=== PATIENT | female | born 1990 | race Caucasian/White ===

== ENCOUNTER 2016-11-25 10:25 | Emergency (ER) | payer MEDICAID ==
[~2016-11-25] VITALS: Ht 160 cm; Wt 50.0 kg
[~2016-11-25 10:25] MED LIST: AMOX500C PO; CIPR-9 PO; IBUP-232 PO; METR500T10 PO; MOTR200T4 PO; ZOFR4TAB3 SL
[2016-11-25 10:26] VITALS: BP 119/83; PULSE 96; RESP 19; TEMP 97.6; O2SAT 100
[2016-11-25] MEDS ORDERED: ONDANSETRON HCL 4 MG/2 ML VIAL IVP ONE (11:15)
[2016-11-25] MEDS ORDERED: KETOROLAC TROMETHAMINE 30 MG/ML (IVP) VIAL IVP ONE (11:15)
[2016-11-25] MEDS ORDERED: SODIUM CHLORIDE 0.9% FLUSH 5 ML FLUSH IVF PRN (11:15)
[2016-11-25] MEDS ORDERED: MORPHINE SULFATE 4 MG/ML INJ IV PUSH ONE (11:15)
--- NOTE | 2016-11-25 11:17 | PD ---
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 , previous miscarriage and live births. Does not believe she could be . States her last missed her period was October 22 and she began to have her menstrual period 2 days ago. Since, she has had severe sharp pain in the pelvis that radiates into the back. States that she has never had any history of dysmenorrhea, menorrhagia or symptoms similar to this. She has been taking some Tylenol and ibuprofen with little to no relief. Patient notes heavy vaginal bleeding, using a tampon every 1-1.5 hours. No clot. She does not believe she could be but is sexually active and is not currently on any form of control. Pain is moderate, sharp, waxing and waning. PFSH Past Medical History Medical History: Denies Significant Hx Genitourinary: Yes (FREQUENT UTI'S) Immunizations Current: Yes Influenza Vaccination: Yes ?: Unknown LMP: 11/24/16 - CURRENT (LMP OCT 22 2016) : 2 Para: 1 Miscarriage: 1 : 0 Ovarian Cysts: Yes (RT. SIDED) Past Surgical History Gynecologic Surgery: Yes (BARTHALAN GLAND CYST DRAINED 06/15/07 ) Social History Alcohol Use: Yes Tobacco Use: Yes (/ PPD) Substance Use: No Allergies-Medications (Allergen,Severity, Reaction): Coded Allergies: Doxycycline (Verified Allergy, Severe, VOMIT, 07/20/16) Tylenol #3 (Verified Adverse Reaction, Intermediate, "MAKES ME NOT KNOW WHO I AM", 07/20/16) Ultram (Verified Adverse Reaction, Intermediate, VOMITTING, 07/20/16) Reported Meds & Prescriptions Reported Meds & Active Scripts Active Reported Motrin Ib (Ibuprofen) 200 Mg Tab 400 Mg PO Q4H PRN Review of Systems Except as stated in HPI: all other systems reviewed are Neg Physical Exam Narrative GENERAL: Thin female in moderate distress laying in position holding abdomen SKIN: Warm and dry. HEAD: Normocephalic. EYES: No scleral icterus. No injection or drainage. ENT: Mucous membranes pink and moist. NECK: Supple CARDIOVASCULAR: Regular rate and rhythm. No murmur appreciated. RESPIRATORY: No accessory muscle use. Clear to auscultation. Breath sounds equal bilaterally. GASTROINTESTINAL: Abdomen soft, low abdominal/pelvic tenderness to palpation without rebound or guarding GENITOURINARY: External external female genitalia. Speculum examination reveals small blood within the vaginal vault, no clot. No cervical erythema. Bimanual examination with moderate tenderness palpation of the cervix and uterus and less so bilateral adnexa. MUSCULOSKELETAL: Normal gait NEUROLOGICAL: Awake and alert. Normal speech. PSYCHIATRIC: Appropriate mood and affect; insight and judgment normal. Data Data Last Documented VS Vital Signs Date Time Temp Pulse Resp B/P Pulse Ox O2 Delivery O2 Flow Rate FiO2 11/25/16 12:52 98.7 78 16 109/64 97 Orders Ed Urine Pregnancytest Poc (11/25/16 10:46) Urinalysis - C+S If Indicated (11/25/16 10:46) Basic Metabolic Panel (Bmp) (11/25/16 11:12) Complete Blood Count With Diff (11/25/16 11:12) Iv Access Insert/Monitor (11/25/16 11:12) Oximetry (11/25/16 11:12) Morphine Inj (Morphine Inj) (11/25/16 11:15) Ondansetron Inj (Zofran Inj) (11/25/16 11:15) Sodium Chloride 0.9% Flush (Ns Flush) (11/25/16 11:15) Ketorolac Inj (Toradol Inj) (11/25/16 11:15) Urine Culture (11/25/16 11:00) Us Pelvis Comp W Dop Transvag (11/25/16 ) Labs Laboratory Tests Test 11/25/16 11/25/16 11:00 11:30 Urine Color YELLOW Urine Turbidity CLEAR Urine pH 6.5 Urine Specific [place] 1.019 Urine Protein TRACE mg/dL Urine Glucose (UA) NEG mg/dL Urine Ketones NEG mg/dL Urine Occult Blood SMALL Urine Nitrite NEG Urine Bilirubin NEG Urine Urobilinogen LESS THAN 2.0 MG/DL Urine Leukocyte Esterase SMALL Urine RBC 2 /hpf Urine WBC 21 /hpf Urine WBC Clumps RARE Urine Squamous Epithelial 2 /hpf Cells Urine Bacteria OCC /hpf Microscopic Urinalysis Comment CULTURE INDICATED White Blood Count 7.9 TH/MM3 Red Blood Count 4.13 MIL/MM3 Hemoglobin 13.8 GM/DL Hematocrit 39.0 % Mean Corpuscular Volume 94.6 FL Mean Corpuscular Hemoglobin 33.3 PG Mean Corpuscular Hemoglobin 35.3 % Concent Red Cell Distribution Width 12.6 % Platelet Count 263 TH/MM3 Mean Platelet Volume 8.2 FL Neutrophils (%) (Auto) 67.8 % Lymphocytes (%) (Auto) 22.9 % Monocytes (%) (Auto) 6.7 % Eosinophils (%) (Auto) 2.3 % Basophils (%) (Auto) 0.3 % Neutrophils # (Auto) 5.3 TH/MM3 Lymphocytes # (Auto) 1.8 TH/MM3 Monocytes # (Auto) 0.5 TH/MM3 Eosinophils # (Auto) 0.2 TH/MM3 Basophils # (Auto) 0.0 TH/MM3 CBC Comment DIFF FINAL Differential Comment Sodium Level 141 MEQ/L Potassium Level 4.0 MEQ/L Chloride Level 104 MEQ/L Carbon Dioxide Level 29.9 MEQ/L Anion Gap 7 MEQ/L Blood Urea Nitrogen 10 MG/DL Creatinine 1.00 MG/DL Estimat Glomerular Filtration 66 ML/MIN Rate Random Glucose 82 MG/DL Calcium Level 8.3 MG/DL MDM Medical Decision Making Medical Screen Exam Complete: Yes Emergency Medical Condition: Yes Medical Record Reviewed: Yes Differential Diagnosis 26-year-old here with complaint of pelvic cramping radiating in the back with heavy vaginal bleeding for the last 2 days. Differential was , ectopic , dysmenorrhea, menorrhagia, ovarian cyst, ovarian torsion, UTI and less likely GI symptomatology. Narrative Course Placed on monitor, IV established and blood obtained. Given morphine, Toradol, Zofran. Urine test was negative. CBC, BMP, urinalysis showed small leukocyte esterase with white cell, white cell clumps and bacteria. Patient will be treated with Macrobid for home. Ultrasound of the pelvis shows trace free fluid within the cul-de-sac but otherwise negative. Patient reassured and discharged. Diagnosis Primary Impression: Dysmenorrhea Additional Impression: UTI (urinary tract infection) Qualified Code: N30.00 - Acute cystitis without hematuria Referrals: [facility] as needed Additional Instructions: Macrobid as prescribed for her urinary tract infection. Tylenol, ibuprofen, Aleve, Midol as needed for pain. [place] as needed for breakthrough pain. 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 Med/Other Pt SpecificInfo: Prescription(s) given Scripts Hydrocodone-Acetaminophen ([place])5-325 mg Tab1-2 Tab PO Q6H PRN (PAIN) #12 TAB Ref 0 Prov:Ana Luisa Currie MD 11/25/16 Disposition: 01 DISCHARGE HOME Condition: Stable Ana Luisa Currie MD Nov 25, 2016 11:17
[2016-11-25 11:40] LABS: BACTERIA, URINE OCC /hpf; BLOOD, URINE SMALL (NEG); GLUCOSE,URINE NEG (NEG); KETONE, URINE NEG (NEG); NITRITE,URINE NEG (NEG); PH, URINE 6.5 (5.0-8.5); SQUAMOUS EPITHELIAL CELL URINE 2 /hpf (0-5); URINE COLOR YELLOW (YELLW/STRAW)
[2016-11-25 11:43] LABS: COMMENT (UR) CULTURE INDICATED; CULTURE IF INDICATED CULTURE INDICATED
[2016-11-25 11:45] LABS: AUTOMATED NEUTROPHIL # 5.3 TH/MM3 (1.8-7.7); BASOPHIL % 0.3 % (0.0-2.0); EOSINOPHIL # 0.2 TH/MM3 (0-0.4); EOSINOPHIL % 2.3 % (0.0-4.0); HEMO FLAGS DIFF FINAL; LYMPH % 22.9 % (9.0-44.0); LYMPHOCYTE # 1.8 TH/MM3 (1.0-4.8); MEAN CELL VOLUME 94.6 FL (80.0-100.0); MEAN CORPUSCULAR HEMOGLOBIN 33.3 PG (27.0-34.0); MEAN CORPUSCULAR HGB CONC 35.3 % (32.0-36.0); MONO % 6.7 % (0.0-8.0); NEUT % 67.8 % (16.0-70.0); PLATELET COUNT 263 TH/MM3 (150-450); RED BLOOD COUNT 4.13 MIL/MM3 (4.00-5.30); RED CELL DISTRIBUTION WIDTH 12.6 % (11.6-17.2); WHITE BLOOD COUNT 7.9 TH/MM3 (4.0-11.0)
[2016-11-25 12:12] LABS: BICARBONATE 29.9 MEQ/L (21.0-32.0)
[2016-11-25 12:52] VITALS: BP 109/64; TEMP 98.7
--- NOTE | 2016-11-25 12:52 | RADRPT ---
EXAM DATE/TIME: 11/25/2016 12:11 [facility] COMPARISON: No previous studies available for comparison. INDICATIONS : Pelvic pain. MEDICAL HISTORY : Ovarian cyst. SURGICAL HISTORY : Barthalan gland cyst drainage. ENCOUNTER: Initial ACUITY: 3 days PAIN SCORE: 6/10 LOCATION: Bilateral pelvis MEASUREMENTS: UTERUS: 8.3 x 4.2 x 3.6 cm ENDOMETRIAL STRIPE: 3 mm RIGHT OVARY: 3.6 x 2.0 x 2.0 cm LEFT OVARY: 3.2 x 2.6 x 2.4 cm FINDINGS: UTERUS: The myometrium has homogeneous echotexture without mass. RIGHT OVARY: Ovary contains no mass or significant cystic lesion. Normal flow. LEFT OVARY: Ovary contains no mass or significant cystic lesion. Normal flow. MISCELLANEOUS: Trace free fluid. CONCLUSION: 1. Trace free fluid in the cul-de-sac. 2. Otherwise unremarkable pelvic sonogram. Neville Mathur MD on November 25, 2016 at 12:49 Board Certified Radiologist. This report was verified electronically.
[2016-11-25] MEDS ORDERED: NORC5TAB PO (13:02)
[2016-11-25] MEDS ORDERED: MACR100C2 PO (13:03)
== END 2016-11-25 13:39 | disposition home or self-care (01) ==
LOC: NEPE 10:25
DX: N94.6 Dysmenorrhea, unspecified (principal); N39.0 Urinary tract infection, site not specified; B96.20 Unspecified Escherichia coli [E. coli] as the cause of diseases classified elsewhere; F17.210 Nicotine dependence, cigarettes, uncomplicated
CPT/HCPCS: 76830; 76856; 80048; 81001; 84703; 85025; 87077; 87086; 87186; 93975; 96374; 96375; 99284; J1885; J2270; J2405

== ENCOUNTER 2016-11-30 17:48 | Emergency (ER) | payer MEDICAID ==
[~2016-11-30] VITALS: Ht 160 cm; Wt 50.0 kg
[~2016-11-30 17:48] MED LIST changes: -AMOX500C PO; -CIPR-9 PO; -IBUP-232 PO; +MACR100C2 PO; -METR500T10 PO; +NORC5TAB PO; -ZOFR4TAB3 SL
[2016-11-30 17:51] VITALS: BP 131/78; PULSE 98; RESP 17; TEMP 97.7; O2SAT 100
[2016-11-30] MEDS ORDERED: SODIUM CHLOR 0.9% 1000 ML INJ 1,000 ML IV SCH (18:25)
[2016-11-30 18:28] LABS: BACTERIA, URINE RARE /hpf; BLOOD, URINE SMALL (NEG); COMMENT (UR) CULTURE INDICATED; CULTURE IF INDICATED CULTURE INDICATED; GLUCOSE,URINE NEG (NEG); KETONE, URINE NEG (NEG); MUCUS URINE FEW /lpf (OCC); NITRITE,URINE NEG (NEG); PH, URINE 8.5 (5.0-8.5); SQUAMOUS EPITHELIAL CELL URINE 26 /hpf (0-5); URINE COLOR YELLOW (YELLW/STRAW)
[2016-11-30] MEDS ORDERED: SODIUM CHLOR 0.9% 1000 ML INJ 1,000 ML IV ONE (18:30)
[2016-11-30] MEDS ORDERED: ONDANSETRON HCL 4 MG/2 ML VIAL IVP ONE (18:30)
[2016-11-30] MEDS ORDERED: KETOROLAC TROMETHAMINE 30 MG/ML (IVP) VIAL IVP ONE (18:30)
[2016-11-30] MEDS ORDERED: SODIUM CHLORIDE 0.9% FLUSH 5 ML FLUSH IVF PRN (18:30)
[2016-11-30] MEDS ORDERED: MORPHINE SULFATE 4 MG/ML INJ IV PUSH ONE (18:30)
[2016-11-30 18:36] VITALS: O2SAT 99
[2016-11-30 18:38] VITALS: BP 116/68; PULSE 84; RESP 18; O2SAT 100
[2016-11-30] MEDS ORDERED: cefTRIAXone INJ 1,000 MG in SODIUM CHLORIDE 0.9% INJ 100 ML IV ONE (18:45)
[2016-11-30 19:01] LABS: AUTOMATED NEUTROPHIL # 6.7 TH/MM3 (1.8-7.7); BASOPHIL % 0.2 % (0.0-2.0); EOSINOPHIL # 0.1 TH/MM3 (0-0.4); HEMO FLAGS DIFF FINAL; LYMPH % 23.2 % (9.0-44.0); LYMPHOCYTE # 2.2 TH/MM3 (1.0-4.8); MEAN CELL VOLUME 96.2 FL (80.0-100.0); MEAN CORPUSCULAR HEMOGLOBIN 32.2 PG (27.0-34.0); MEAN CORPUSCULAR HGB CONC 33.5 % (32.0-36.0); MONO % 4.7 % (0.0-8.0); NEUT % 70.9 % (16.0-70.0); PLATELET COUNT 255 TH/MM3 (150-450); RED BLOOD COUNT 4.16 MIL/MM3 (4.00-5.30); RED CELL DISTRIBUTION WIDTH 12.9 % (11.6-17.2); WHITE BLOOD COUNT 9.4 TH/MM3 (4.0-11.0)
--- NOTE | 2016-11-30 19:05 | PD ---
HPI Chief Complaint: Flank/Kidney Pain Time Seen by Provider: 18:09 Travel History International Travel<30 days: No Contact w/Intl Traveler<30days: No Traveled to known affect area: No History of Present Illness HPI The patient is a 26-year-old female who presents emergency department for right flank pain of 2 days' duration. The patient states she was seen in emergency department 5 days ago and diagnosed with dysmenorrhea and possibly UTI. The patient was placed on Macrobid twice a day for 5 days, completed treatment. However, the last 2 days she's had progressive symptoms of right mid back pain that radiates to the right flank and right lower quadrant. She does note nausea and vomiting earlier today with decreased oral intake. The patient denies . Last menstrual cycle ended 2 days ago. The patient denies any dysuria, frequency, urgency, or vaginal discharge. However, she does have a history of multiple asymptomatic UTIs in the past and pyelonephritis in the past. She does complain of subjective fevers, chills, and sweats. The patient does not currently have a primary physician. She denies any history of previous nephrolithiasis or appendicitis. Tendons are moderate, there are no alleviating factors, possibly exacerbated by kidney infection per the patient's report. PFSH Past Medical History Diminished Hearing: No Genitourinary: Yes (FREQUENT UTI'S) Immunizations Current: Yes Tetanus Vaccination: < 5 Years ?: Not : 2 Para: 1 Miscarriage: 1 : 0 Ovarian Cysts: Yes (RT. SIDED) Past Surgical History Gynecologic Surgery: Yes (BARTHALAN GLAND CYST DRAINED 06/15/07 ) Social History Alcohol Use: Yes Tobacco Use: Yes (09/15 PPD) Substance Use: No Allergies-Medications (Allergen,Severity, Reaction): Coded Allergies: Doxycycline (Verified Allergy, Severe, VOMIT, 11/30/16) Tylenol #3 (Verified Adverse Reaction, Intermediate, "MAKES ME NOT KNOW WHO I AM", 11/30/16) Ultram (Verified Adverse Reaction, Intermediate, VOMITTING, 11/30/16) Reported Meds & Prescriptions Reported Meds & Active Scripts Active Macrobid (Nitrofurantoin Monoh/Nitrofur Macro) 100 Mg Cap 100 Mg PO BID 7 Days [place] (Hydrocodone-Acetaminophen) 5-325 mg Tab 1-2 Tab PO Q6H PRN Reported Motrin Ib (Ibuprofen) 200 Mg Tab 400 Mg PO Q4H PRN Review of Systems Except as stated in HPI: all other systems reviewed are Neg General / Constitutional: Positive: Fever, Chills Cardiovascular: No: Chest Pain or Discomfort Respiratory: No: Shortness of Breath Gastrointestinal: Positive: Nausea, Vomiting, Abdominal Pain, No: Diarrhea Genitourinary: Positive: Flank Pain, No: Urgency, Frequency, Dysuria, Hematuria, Discharge, Vaginal Bleeding Musculoskeletal: Positive: Myalgias, Weakness Skin: No Rash Physical Exam Narrative GENERAL: Awake, alert, 26-year-old female who appears her stated age and appears in moderate discomfort. SKIN: Warm and dry. HEAD: Atraumatic. Normocephalic. EYES: Pupils equal and round. No scleral icterus. No injection or drainage. ENT: No nasal bleeding or discharge. Mucous membranes pink and moist. NECK: Trachea midline. No JVD. CARDIOVASCULAR: Regular rate and rhythm. No murmur appreciated. Heart rate in the 90s. RESPIRATORY: No accessory muscle use. Clear to auscultation. Breath sounds equal bilaterally. GASTROINTESTINAL: Abdomen soft, tender palpation right flank and right lower abdomen. Back: Positive right CVA tenderness. MUSCULOSKELETAL: No obvious deformities. No clubbing. No cyanosis. No edema. NEUROLOGICAL: Awake and alert. No obvious cranial nerve deficits. Motor grossly within normal limits. Normal speech. PSYCHIATRIC: Appropriate mood and affect; insight and judgment normal. Data Data Last Documented VS Vital Signs Date Time Temp Pulse Resp B/P Pulse Ox O2 Delivery O2 Flow Rate FiO2 11/30/16 19:57 73 20 118/84 96 Nasal Cannula 2 11/30/16 17:51 97.7 Orders Urinalysis - C+S If Indicated (11/30/16 17:55) Ed Urine Pregnancytest Poc (11/30/16 17:55) Complete Blood Count With Diff (11/30/16 18:25) Comprehensive Metabolic Panel (11/30/16 18:25) Lipase (11/30/16 18:25) Lactic Acid (11/30/16 18:25) Ct Abd/Pel W Iv Contrast(Rout) (11/30/16 18:25) Iv Access Insert/Monitor (11/30/16 18:25) Ecg Monitoring (11/30/16 18:25) Oximetry (11/30/16 18:25) Morphine Inj (Morphine Inj) (11/30/16 18:30) Ondansetron Inj (Zofran Inj) (11/30/16 18:30) Sodium Chlor 0.9% 1000 Ml Inj (Ns 1000 M (11/30/16 18:25) Sodium Chloride 0.9% Flush (Ns Flush) (11/30/16 18:30) Ketorolac Inj (Toradol Inj) (11/30/16 18:30) Sodium Chlor 0.9% 1000 Ml Inj (Ns 1000 M (11/30/16 18:30) Urine Culture (11/30/16 18:00) Oral Contrast - Adult (11/30/16 18:32) Ceftriaxone Inj (Rocephin Inj) (11/30/16 18:45) Blood Culture (11/30/16 18:35) Diatrizoate Liq ( [place] Liq) (11/30/16 19:13) Iohexol 350 Inj (Omnipaque 350 Inj) (11/30/16 20:43) Labs Laboratory Tests Test 11/30/16 11/30/16 18:00 18:35 White Blood Count 9.4 TH/MM3 Red Blood Count 4.16 MIL/MM3 Hemoglobin 13.4 GM/DL Hematocrit 40.0 % Mean Corpuscular Volume 96.2 FL Mean Corpuscular Hemoglobin 32.2 PG Mean Corpuscular Hemoglobin 33.5 % Concent Red Cell Distribution Width 12.9 % Platelet Count 255 TH/MM3 Mean Platelet Volume 8.6 FL Neutrophils (%) (Auto) 70.9 % Lymphocytes (%) (Auto) 23.2 % Monocytes (%) (Auto) 4.7 % Eosinophils (%) (Auto) 1.0 % Basophils (%) (Auto) 0.2 % Neutrophils # (Auto) 6.7 TH/MM3 Lymphocytes # (Auto) 2.2 TH/MM3 Monocytes # (Auto) 0.4 TH/MM3 Eosinophils # (Auto) 0.1 TH/MM3 Basophils # (Auto) 0.0 TH/MM3 CBC Comment DIFF FINAL Differential Comment Urine Color YELLOW Urine Turbidity HAZY Urine pH 8.5 Urine Specific [place] 1.021 Urine Protein 30 mg/dL Urine Glucose (UA) NEG mg/dL Urine Ketones NEG mg/dL Urine Occult Blood SMALL Urine Nitrite NEG Urine Bilirubin NEG Urine Urobilinogen LESS THAN 2.0 MG/DL Urine Leukocyte Esterase MOD Urine RBC 14 /hpf Urine WBC 32 /hpf Urine Squamous Epithelial 26 /hpf Cells Urine Bacteria RARE /hpf Urine Mucus FEW /lpf Microscopic Urinalysis Comment CULTURE INDICATED Sodium Level 141 MEQ/L Potassium Level 3.3 MEQ/L Chloride Level 103 MEQ/L Carbon Dioxide Level 29.2 MEQ/L Anion Gap 9 MEQ/L Blood Urea Nitrogen 13 MG/DL Creatinine 1.00 MG/DL Estimat Glomerular Filtration 66 ML/MIN Rate Random Glucose 102 MG/DL Calcium Level 8.6 MG/DL Total Bilirubin 0.2 MG/DL Aspartate Amino Transf 15 U/L (AST/SGOT) Alanine Aminotransferase 22 U/L (ALT/SGPT) Alkaline Phosphatase 55 U/L Total Protein 8.0 GM/DL Albumin 4.4 GM/DL Lipase 138 U/L Lactic Acid Level 0.8 mmol/L [facility] Medical Decision Making Medical Screen Exam Complete: Yes Emergency Medical Condition: Yes Medical Record Reviewed: Yes Interpretation(s) Last Impressions Abdomen/Pelvis CT 11/30/161824 Signed Impressions: Service Date/Time: Wednesday, November 30, 2016 20:43 - CONCLUSION: 1. The bowel gas pattern appears unremarkable. 2. The appendix is not distinctly visualized. There is no definite inflammatory change or abnormal tubular structures making the likelihood of appendicitis low. The distal small bowel and colon are unopacified on this exam limiting the sensitivity. Cory Quiles MD Laboratory Tests Test 11/30/16 11/30/16 18:00 18:35 White Blood Count 9.4 TH/MM3 Red Blood Count 4.16 MIL/MM3 Hemoglobin 13.4 GM/DL Hematocrit 40.0 % Mean Corpuscular Volume 96.2 FL Mean Corpuscular Hemoglobin 32.2 PG Mean Corpuscular Hemoglobin 33.5 % Concent Red Cell Distribution Width 12.9 % Platelet Count 255 TH/MM3 Mean Platelet Volume 8.6 FL Neutrophils (%) (Auto) 70.9 % Lymphocytes (%) (Auto) 23.2 % Monocytes (%) (Auto) 4.7 % Eosinophils (%) (Auto) 1.0 % Basophils (%) (Auto) 0.2 % Neutrophils # (Auto) 6.7 TH/MM3 Lymphocytes # (Auto) 2.2 TH/MM3 Monocytes # (Auto) 0.4 TH/MM3 Eosinophils # (Auto) 0.1 TH/MM3 Basophils # (Auto) 0.0 TH/MM3 CBC Comment DIFF FINAL Differential Comment Urine Color YELLOW Urine Turbidity HAZY Urine pH 8.5 Urine Specific [place] 1.021 Urine Protein 30 mg/dL Urine Glucose (UA) NEG mg/dL Urine Ketones NEG mg/dL Urine Occult Blood SMALL Urine Nitrite NEG Urine Bilirubin NEG Urine Urobilinogen LESS THAN 2.0 MG/DL Urine Leukocyte Esterase MOD Urine RBC 14 /hpf Urine WBC 32 /hpf Urine Squamous Epithelial 26 /hpf Cells Urine Bacteria RARE /hpf Urine Mucus FEW /lpf Microscopic Urinalysis Comment CULTURE INDICATED Sodium Level 141 MEQ/L Potassium Level 3.3 MEQ/L Chloride Level 103 MEQ/L Carbon Dioxide Level 29.2 MEQ/L Anion Gap 9 MEQ/L Blood Urea Nitrogen 13 MG/DL Creatinine 1.00 MG/DL Estimat Glomerular Filtration 66 ML/MIN Rate Random Glucose 102 MG/DL Calcium Level 8.6 MG/DL Total Bilirubin 0.2 MG/DL Aspartate Amino Transf 15 U/L (AST/SGOT) Alanine Aminotransferase 22 U/L (ALT/SGPT) Alkaline Phosphatase 55 U/L Total Protein 8.0 GM/DL Albumin 4.4 GM/DL Lipase 138 U/L Lactic Acid Level 0.8 mmol/L Differential Diagnosis Differential diagnosis includes pyelonephritis failed outpatient therapy, perinephric abscess, appendicitis, nephrolithiasis, PID, cervicitis, noncompliance, atypical cholecystitis. Narrative Course IV was established, labs are drawn and sent, and the patient was placed on cardiac telemetry monitoring and continuous pulse oximetry monitoring. UA was sent to lab. The patient was administered morphine, Toradol, Zofran, and 2 L of IV fluids. Blood culture and lactic acid were sent to lab. I reviewed the patient's EMR, she was evaluated by Dr. Currie on November 25 and diagnosed with dysmenorrhea. The patient did have UA to head WBCs was placed on Macrobid. The patient's micro-does reveals Escherichia coli that was pansensitive including to Macrobid. The patient's white count is normal. Patient's lactic acid is unremarkable. The patient's heart rate came down into the 60s. CT is unremarkable, no definite inflammatory changes or abnormal tubular structures making the likelihood of appendicitis lobe. Patient does have a dirty urine and right CVA tenderness with history pyelonephritis, therefore, will be treated for bilateral with Bactrim twice a day for 10 days. She also be provided pain medications. She is advised to follow-up with her primary physician. Diagnosis Primary Impression: Pyelonephritis Patient Instructions: General Instructions Additional Instructions: Medications as directed. Follow-up with her primary physician. Return if symptoms worsen or progress. Med/Other Pt SpecificInfo: Prescription(s) given Scripts Hydrocodone-Acetaminophen ([place])5-325 mg Tab1 Tab PO Q6H PRN (PAIN) #12 TAB Ref 0 Prov:Davy Bronson MD 11/30/16 Sulfamethoxazole-Trimethoprim (Bactrim DS)800-160 Mg Tab1 Tab PO BID #20 TAB Ref 0 Prov:Davy Bronson MD 11/30/16 Disposition: 01 DISCHARGE HOME Condition: Stable Davy Bronson MD Nov 30, 2016 19:05
[2016-11-30] MEDS ORDERED: DIATRIZOATE MEGLUM/DIATRIZOATE SOD 9 ML CUP ONE (19:13)
[2016-11-30 19:14] LABS: ANION GAP 9 MEQ/L (5-15); AST (GOT) 15 U/L (15-37); BICARBONATE 29.2 MEQ/L (21.0-32.0); BLOOD UREA NITROGEN 13 MG/DL (7-18); CHLORIDE 103 MEQ/L (98-107); GLOMERULAR FILTRATION RATE 66 ML/MIN (>89); POTASSIUM 3.3 MEQ/L (3.5-5.1); SODIUM (NA) 141 MEQ/L (136-145)
[2016-11-30 19:18] LABS: ALKALINE PHOSPHATASE 55 U/L (45-117); ALT (GPT) 22 U/L (10-53); TOTAL BILIRUBIN ADULT 0.2 MG/DL (0.2-1.0)
[2016-11-30 19:57] VITALS: BP 118/84; PULSE 73; RESP 20; O2SAT 96
[2016-11-30] MEDS ORDERED: IOHEXOL 350 MG/ML 10 ML VIAL (for RAD DIAG) IV ONE (20:43)
--- NOTE | 2016-11-30 21:02 | RADRPT ---
EXAM DATE/TIME: 11/30/2016 20:43 [facility] COMPARISON: CT ABDOMEN & PELVIS W/O CONTRAST, July 20, 2016, 15:29. INDICATIONS : Right lower quadrant pain. IV CONTRAST: 80 cc Omnipaque 350 (iohexol) IV ORAL CONTRAST: Prescribed oral contrast ingested. RADIATION DOSE: 5.74 CTDIvol (mGy) MEDICAL HISTORY : None SURGICAL HISTORY : None. ENCOUNTER: Initial ACUITY: 1 day PAIN SCALE: 5/10 LOCATION: Right lower quadrant TECHNIQUE: Volumetric scanning of the abdomen and pelvis was performed. Using automated exposure control and ad justment of the mA and/or kV according to patient size, radiation dose was kept as low as reasonably achievable to obtain optimal diagnostic quality images. FINDINGS: LOWER LUNGS: The visualized lower lungs are clear. LIVER: Homogeneous density without lesion. There is no dilation of the biliary tree. No calcified gallston es. SPLEEN: Normal size without lesion. PANCREAS: Within normal limits. KIDNEYS: Normal in size and shape. There is no mass, stone or hydronephrosis. ADRENAL GLANDS: Within normal limits. VASCULAR: There is no aortic aneurysm. BOWEL/MESENTERY: The stomach, small bowel, and colon demonstrate no acute abnormality. There is no free intraperitone al air or fluid. There is limited oral opacification of the stomach and proximal and mid small bowel. The distal small bowel and colon are unopacified. The appendix is not distinctly visualized. There i s no definite inflammatory change or abnormal tubular structures. ABDOMINAL WALL: Within normal limits. RETROPERITONEUM: There is no lymphadenopathy. BLADDER: No wall thickening or mass. REPRODUCTIVE: Within normal limits. INGUINAL: There is no lymphadenopathy or hernia. MUSCULOSKELETAL: Within normal limits for patient age. CONCLUSION: 1. The bowel gas pattern appears unremarkable. 2. The appendix is not distinctly visualized. There is no definite inflammatory change or abnormal tu bular structures making the likelihood of appendicitis low. The distal small bowel and colon are unop acified on this exam limiting the sensitivity. Cory Quiles MD on November 30, 2016 at 20:58 Board Certified Radiologist. This report was verified electronically.
[2016-11-30] MEDS ORDERED: NORC5TAB PO (21:11)
[2016-11-30] MEDS ORDERED: BACT800T5 PO (21:11)
[2016-11-30] MEDS ORDERED: HYDROmorphone HCL PF 1 MG/ML VIAL IV PUSH ONE (21:15)
[2016-11-30 21:34] VITALS: BP 118/73
== END 2016-11-30 22:53 | disposition home or self-care (01) ==
LOC: NEPA 17:48
DX: N12 Tubulo-interstitial nephritis, not specified as acute or chronic (principal); B96.20 Unspecified Escherichia coli [E. coli] as the cause of diseases classified elsewhere; B96.89 Other specified bacterial agents as the cause of diseases classified elsewhere; N94.6 Dysmenorrhea, unspecified
CPT/HCPCS: 74177; 80053; 81001; 83605; 83690; 84703; 85025; 87040; 87077; 87086; 87186; 96365; 96375; 99284; J0696; J1170; J1885; J2270; J2405; J7030; Q9963; Q9967

== ENCOUNTER 2016-12-03 18:30 | Observation (INO) | payer MEDICAID ==
[~2016-12-03] VITALS: Ht 160 cm; Wt 55.0 kg
[~2016-12-03 18:30] MED LIST changes: +BACT800T5 PO
[2016-12-03 18:32] VITALS: BP 134/81; PULSE 102; RESP 22; TEMP 98; O2SAT 96
[2016-12-03 21:08] VITALS: BP 114/75; PULSE 94; RESP 20; O2SAT 99
[2016-12-03] MEDS ORDERED: ADVI200C5 PO (21:11)
[2016-12-03] MEDS ORDERED: SODIUM CHLOR 0.9% 1000 ML INJ 1,000 ML IV SCH (21:14)
[2016-12-03] MEDS ORDERED: SODIUM CHLORIDE 0.9% FLUSH 10 ML FLUSH IV FLUSH PRN (21:15)
[2016-12-03] MEDS ORDERED: MORPHINE SULFATE 4 MG/ML INJ IV PUSH ONE ×2 (21:15→23:30)
[2016-12-03 21:27] LABS: AUTOMATED NEUTROPHIL # 7.6 TH/MM3 (1.8-7.7); BASOPHIL % 0.3 % (0.0-2.0); EOSINOPHIL # 0.1 TH/MM3 (0-0.4); EOSINOPHIL % 0.9 % (0.0-4.0); HEMATOCRIT 44.1 % (35.0-46.0); HEMO FLAGS DIFF FINAL; LYMPH % 24.4 % (9.0-44.0); LYMPHOCYTE # 2.7 TH/MM3 (1.0-4.8); MEAN CELL VOLUME 94.6 FL (80.0-100.0); MEAN CORPUSCULAR HGB CONC 35.9 % (32.0-36.0); MONO % 4.3 % (0.0-8.0); NEUT % 70.1 % (16.0-70.0); PLATELET COUNT 268 TH/MM3 (150-450); RED BLOOD COUNT 4.66 MIL/MM3 (4.00-5.30); WHITE BLOOD COUNT 10.9 TH/MM3 (4.0-11.0)
--- NOTE | 2016-12-03 21:28 | PD ---
HPI Chief Complaint: Flank/Kidney Pain Time Seen by Provider: 21:02 Travel History International Travel<30 days: No Contact w/Intl Traveler<30days: No Traveled to known affect area: No History of Present Illness HPI Patient is a 26-year-old female who presents to emergency room with complaints of right-sided flank pain. Patient reports that she was seen at this hospital on November 30, 2016 with complaints of right-sided flank pain for 2 days. Reports that she had been discharged with a urinary tract infection 5 days prior to her initial visit. Patient reports that during her initial visit, she was placed on Macrobid for her urinary tract infection. Patient return to the emergency room on November 30 that she had increased right-sided flank pain. Patient reports that she had lab work as well as CT of her abdomen & pelvis obtained, patient was diagnosed with pyelonephritis and was sent home on Bactrim as well as [place] for pain. Patient reports that she isn't taking her antibiotics as prescribed, reports that she is not feeling any better at this time. She reports that she has been having intermittent fevers and chills. Patient reports that now she feels pain going to her left kidney. PFSH Past Medical History Diminished Hearing: No Genitourinary: Yes (FREQUENT UTI'S) Immunizations Current: Yes ?: Not LMP: 11/23/16 : 2 Para: 1 Miscarriage: 1 : 0 Ovarian Cysts: Yes (RT. SIDED) Past Surgical History Gynecologic Surgery: Yes (BARTHALAN GLAND CYST DRAINED 06/15/07 ) Social History Alcohol Use: Yes Tobacco Use: Yes (/ PPD) Substance Use: No Allergies-Medications (Allergen,Severity, Reaction): Coded Allergies: Doxycycline (Verified Allergy, Severe, VOMIT, 12/03/16) Tylenol #3 (Verified Adverse Reaction, Intermediate, "MAKES ME NOT KNOW WHO I AM", 12/03/16) Ultram (Verified Adverse Reaction, Intermediate, VOMITTING, 12/03/16) Reported Meds & Prescriptions Reported Meds & Active Scripts Active [place] (Hydrocodone-Acetaminophen) 5-325 mg Tab 1 Tab PO Q6H PRN Bactrim DS (Sulfamethoxazole-Trimethoprim) 800-160 Mg Tab 1 Tab PO BID Reported Advil (Ibuprofen) 200 Mg Cap 600 Mg PO TID Review of Systems General / Constitutional: No: Fever Eyes: No: Visual changes HENT: No: Headaches Cardiovascular: No: Chest Pain or Discomfort Respiratory: No: Shortness of Breath Gastrointestinal: No: Abdominal Pain Genitourinary: Positive: Urgency, Frequency, Dysuria, Flank Pain Musculoskeletal: No: Pain Skin: No Rash Neurologic: No: Weakness Psychiatric: No: Depression Endocrine: No: Polydipsia Hematologic/Lymphatic: No: Easy Bruising Physical Exam Narrative GENERAL: Mild distress SKIN: Warm and dry. HEAD: Atraumatic. Normocephalic. EYES: Pupils equal and round. No scleral icterus. No injection or drainage. ENT: No nasal bleeding or discharge. Mucous membranes pink and moist. NECK: Trachea midline. No JVD. CARDIOVASCULAR: Regular rate and rhythm. No murmur appreciated. RESPIRATORY: No accessory muscle use. Clear to auscultation. Breath sounds equal bilaterally. GASTROINTESTINAL: Abdomen soft, non-tender, nondistended. Patient with right- sided flank pain MUSCULOSKELETAL: No obvious deformities. No clubbing. No cyanosis. No edema. NEUROLOGICAL: Awake and alert. No obvious cranial nerve deficits. Motor grossly within normal limits. Normal speech. PSYCHIATRIC: Appropriate mood and affect; insight and judgment normal. Data Data Last Documented VS Vital Signs Date Time Temp Pulse Resp B/P Pulse Ox O2 Delivery O2 Flow Rate FiO2 12/03/16 21:08 94 20 114/75 99 Room Air 12/03/16 18:32 98.0 Orders Urinalysis - C+S If Indicated (12/03/16 18:45) Ed Urine Pregnancytest Poc (12/03/16 18:45) Complete Blood Count With Diff (12/03/16 21:14) Comprehensive Metabolic Panel (12/03/16 21:14) Iv Access Insert/Monitor (12/03/16 21:14) Ecg Monitoring (12/03/16 21:14) Morphine Inj (Morphine Inj) (12/03/16 21:15) Sodium Chlor 0.9% 1000 Ml Inj (Ns 1000 M (12/03/16 21:14) Sodium Chloride 0.9% Flush (Ns Flush) (12/03/16 21:15) Ketorolac Inj (Toradol Inj) (12/03/16 22:30) Us Kidney/Renal/Bladder (12/03/16 ) Morphine Inj (Morphine Inj) (12/03/16 23:30) Urine Culture (12/03/16 22:58) Us Pelvis Comp W Doppler (12/04/16 ) Ampicillin-Sulbactam Inj (Unasyn Inj) (12/04/16 01:15) Labs Laboratory Tests Test 12/03/16 12/03/16 21:10 22:58 White Blood Count 10.9 TH/MM3 Red Blood Count 4.66 MIL/MM3 Hemoglobin 15.8 GM/DL Hematocrit 44.1 % Mean Corpuscular Volume 94.6 FL Mean Corpuscular Hemoglobin 34.0 PG Mean Corpuscular Hemoglobin 35.9 % Concent Red Cell Distribution Width 13.0 % Platelet Count 268 TH/MM3 Mean Platelet Volume 9.1 FL Neutrophils (%) (Auto) 70.1 % Lymphocytes (%) (Auto) 24.4 % Monocytes (%) (Auto) 4.3 % Eosinophils (%) (Auto) 0.9 % Basophils (%) (Auto) 0.3 % Neutrophils # (Auto) 7.6 TH/MM3 Lymphocytes # (Auto) 2.7 TH/MM3 Monocytes # (Auto) 0.5 TH/MM3 Eosinophils # (Auto) 0.1 TH/MM3 Basophils # (Auto) 0.0 TH/MM3 CBC Comment DIFF FINAL Differential Comment Sodium Level 139 MEQ/L Potassium Level 3.6 MEQ/L Chloride Level 101 MEQ/L Carbon Dioxide Level 26.6 MEQ/L Anion Gap 11 MEQ/L Blood Urea Nitrogen 12 MG/DL Creatinine 0.90 MG/DL Estimat Glomerular Filtration 75 ML/MIN Rate Random Glucose 91 MG/DL Calcium Level 9.3 MG/DL Total Bilirubin 0.3 MG/DL Aspartate Amino Transf 22 U/L (AST/SGOT) Alanine Aminotransferase 26 U/L (ALT/SGPT) Alkaline Phosphatase 59 U/L Total Protein 8.9 GM/DL Albumin 4.9 GM/DL Urine Color LIGHT-YELLOW Urine Turbidity HAZY Urine pH 6.5 Urine Specific [place] 1.013 Urine Protein NEG mg/dL Urine Glucose (UA) NEG mg/dL Urine Ketones 10 mg/dL Urine Occult Blood NEG Urine Nitrite NEG Urine Bilirubin NEG Urine Urobilinogen LESS THAN 2.0 MG/DL Urine Leukocyte Esterase LARGE Urine RBC 4 /hpf Urine WBC 12 /hpf Urine Squamous Epithelial 36 /hpf Cells Urine Bacteria FEW /hpf Urine Mucus FEW /lpf Urine Yeast (Budding) RARE Microscopic Urinalysis Comment CULTURE INDICATED MDM Medical Decision Making Medical Screen Exam Complete: Yes Emergency Medical Condition: Yes Interpretation(s) Vital Signs Date Time Temp Pulse Resp B/P Pulse Ox O2 Delivery O2 Flow Rate FiO2 12/03/16 21:08 94 20 114/75 99 Room Air 12/03/16 18:32 98.0 102 22 134/81 96 Room Air Differential Diagnosis Pyelonephritis - failed outpatient treatment, cholecystitis, perinephric abscess Narrative Course Patient is a 26-year-old female who returns to emergency room for the third time for evaluation of pyelonephritis. Patient has been on a course of antibiotics, she was seen by Dr. Guevara on November 25 and diagnosed with dysmenorrhea as well as UTI and was started on Macrobid. Patient was seen on November 30 as she continued to have increased pain as well as right-sided flank pain and was diagnosed with pyelonephritis and was sent home on Bactrim as well as [place] for pain. Patient did have a urine culture as well as blood culture sent that time. Patient with continued right-sided flank pain, plan to obtain labs as well as urinalysis. We ordered to evaluate for possible hydronephrosis. Blood culture from November 30 was positive for 25-50,000 Escherichia coli which is sensitive to Bactrim as well as nitrofurantoin CBC & BMP Diagram 12/03/16 21:10 Last Impressions Pelvis Ultrasound 12/04/16 0000 Signed Impressions: Service Date/Time: November 00:14 - CONCLUSION: Normal examination. Angel Landon MD Renal Ultrasound 12/03/16 0000 Signed Impressions: Service Date/Time: November 00:07 - CONCLUSION: Normal examination. Angel Landon MD case reviewed with dr shannon who accepts pt to service Diagnosis Primary Impression: Pyelonephritis Admitting Information Admitting Physician Requests: Admit Cydney Campo DO Dec 03, 2016 21:28 Cydney Campo DO Dec 03, 2016 21:28
[2016-12-03 21:52] LABS: ALKALINE PHOSPHATASE 59 U/L (45-117); ALT (GPT) 26 U/L (10-53); ANION GAP 11 MEQ/L (5-15); AST (GOT) 22 U/L (15-37); BICARBONATE 26.6 MEQ/L (21.0-32.0); BLOOD UREA NITROGEN 12 MG/DL (7-18); CHLORIDE 101 MEQ/L (98-107); GLOMERULAR FILTRATION RATE 75 ML/MIN (>89); POTASSIUM 3.6 MEQ/L (3.5-5.1); SODIUM (NA) 139 MEQ/L (136-145); TOTAL BILIRUBIN ADULT 0.3 MG/DL (0.2-1.0)
[2016-12-03] MEDS ORDERED: KETOROLAC TROMETHAMINE 30 MG/ML (IVP) VIAL IV PUSH ONE (22:30)
[2016-12-03 23:42] LABS: BACTERIA, URINE FEW /hpf; BLOOD, URINE NEG (NEG); COMMENT (UR) CULTURE INDICATED; CULTURE IF INDICATED CULTURE INDICATED; GLUCOSE,URINE NEG (NEG); KETONE, URINE 10 mg/dL (NEG); MUCUS URINE FEW /lpf (OCC); NITRITE,URINE NEG (NEG); PH, URINE 6.5 (5.0-8.5); SQUAMOUS EPITHELIAL CELL URINE 36 /hpf (0-5); URINE COLOR LIGHT-YELLOW (YELLW/STRAW)
[2016-12-04] VITALS (8 sets, daily range): BP systolic 105–128; BP diastolic 68–82; PULSE 59–98; RESP 14–18; TEMP 97.8–98.7; O2SAT 98–100
--- NOTE | 2016-12-04 00:46 | RADRPT ---
EXAM DATE/TIME: 12/04/2016 00:07 [facility] COMPARISON: CT ABDOMEN & PELVIS W CONTRAST, November 30, 2016, 20:43. INDICATIONS : Flank pain. MEDICAL HISTORY : . Right ovarian cysts. Frequent urinary tract infections. SURGICAL HISTORY : Bartholin cyst drainage. ENCOUNTER: Initial ACUITY: 4-6 days PAIN SCORE: 7/10 LOCATION: Bilateral flank MEASUREMENTS: RIGHT KIDNEY: 10.9 x 6.4 x 4.3 cm LEFT KIDNEY: 11.7 x 5.6 x 5.0 cm FINDINGS: RIGHT KIDNEY: Renal cortex is normal in thickness and echotexture. No hydronephrosis, stone, or mass. LEFT KIDNEY: Renal cortex is normal in thickness and echotexture. No hydronephrosis, stone, or mass. BLADDER: Within normal limits given the degree of distension. CONCLUSION: Normal examination. Angel Landon MD on December 04, 2016 at 0:44 Board Certified Radiologist. This report was verified electronically.
--- NOTE | 2016-12-04 00:53 | RADRPT ---
EXAM DATE/TIME: 12/04/2016 00:14 [facility] COMPARISON: US PELVIS,COMP,W DOPLR, TRANS VAG, November 25, 2016, 12:11. CT ABDOMEN & PELVIS W CONTRAST, November 30, 2016, 20:43. INDICATIONS : Pelvic pain. MEDICAL HISTORY : . Right ovarian cyst. Frequent urinary tract infections. SURGICAL HISTORY : Bartholin cyst drainage. ENCOUNTER: Initial ACUITY: 4-6 days PAIN SCORE: 7/10 LOCATION: Bilateral pelvis MEASUREMENTS: UTERUS: 8.3 x 5.5 x 3.4 cm ENDOMETRIAL STRIPE: 6 mm RIGHT OVARY: 4.7 x 2.6 x 2.0 cm LEFT OVARY: 2.7 x 2.1 x 2.0 cm FINDINGS: UTERUS: The myometrium has homogeneous echotexture without mass. RIGHT OVARY: Ovary contains no mass or significant cystic lesion. LEFT OVARY: Ovary contains no mass or significant cystic lesion. MISCELLANEOUS: No free fluid. CONCLUSION: Normal examination. Angel Landon MD on December 04, 2016 at 0:51 Board Certified Radiologist. This report was verified electronically.
[2016-12-04] MEDS ORDERED: AMPICILLIN-SULBACTAM INJ 3 GM in SODIUM CHLORIDE 0.9% INJ 100 ML IV ONE (01:15)
[2016-12-04] MEDS ORDERED: ONDANSETRON HCL 4 MG/2 ML VIAL IVP PRN (01:30)
[2016-12-04] MEDS ORDERED: NALOXONE HCL 0.4 MG/ML AMP IV PRN (01:30)
[2016-12-04] MEDS ORDERED: SODIUM CHLORIDE 0.9% FLUSH 10 ML FLUSH IV FLUSH PRN (01:30)
[2016-12-04] MEDS: CIPROFLOXACIN 400 MG PREMIX 200 ML IV SCH ×2 (02:00→15:36)
--- NOTE | 2016-12-04 02:56 | HHI.HP ---
[facility] No Primary Care Physician Admission Diagnosis pyelonephritis Diagnoses: Travel History International Travel<30 Days: No Contact w/Intl Traveler <30 Da: No Traveled to Known Affected Are: No History of Present Illness History from patient, your physician communication, and review of medical records. Patient reported that she has been having pain from her kidney infection and since November 24. She reports she came to the hospital and she was treated with antibiotics. Previous hospitalization records reviewed. Patient was discharged on Macrobid from ER. She stated within a few days, she was returned back at that time and antibiotics were this time switched to Bactrim. She states that she has been on Bactrim for about a week. She however still reports of excruciating abdominal pains. Patient is crying pretty much through her entire hospital ER visit. She reports that her pain is in the right flank area radiating down to her groin. Previous hospital records reviewed. Culture results reviewed. Was pansensitive bacteria. Review of Systems Except as stated in HPI: all other systems reviewed are Neg Past Family Social History Past Medical History anxiety asthma last yr pyelo Past Surgical History no sx Allergies: Coded Allergies: Doxycycline (Verified Allergy, Severe, VOMIT, 12/03/16) Tylenol #3 (Verified Adverse Reaction, Intermediate, "MAKES ME NOT KNOW WHO I AM", 12/03/16) Ultram (Verified Adverse Reaction, Intermediate, VOMITTING, 12/03/16) Family History dadmi mom lupus Social History half a pack a day more than 10yrs Denies drinking alcohol or drug abuse. Physical Exam Vital Signs Vital Signs Date Time Temp Pulse Resp B/P Pulse Ox O2 Delivery O2 Flow Rate FiO2 12/04/16 01:00 64 16 118/69 100 Room Air 12/03/16 21:08 94 20 114/75 99 Room Air 12/03/16 18:32 98.0 102 22 134/81 96 Room Air Physical Exam GENERAL: This is a well-nourished, well-developed patient, in apparent distress from pain. Moaning and crying. SKIN: No rashes, ecchymoses or lesions. Cool and dry. HEAD: Atraumatic. Normocephalic. No temporal or scalp tenderness. EYES: No scleral icterus. No injection or drainage. ENT: Nose without bleeding, purulent drainage or septal hematoma. NECK: Trachea midline. No JVD CARDIOVASCULAR: Regular rate and rhythm without murmurs, gallops, or rubs. RESPIRATORY: Clear to auscultation. Breath sounds equal bilaterally. No wheezes , rales, or rhonchi. GASTROINTESTINAL: Abdomen soft, non-tender, nondistended. No hepato-splenomegaly , or palpable masses. No guarding. MUSCULOSKELETAL: Extremities without clubbing, cyanosis, or edema. No calf tenderness. NEUROLOGICAL: Awake and alert. Motor and sensory grossly within normal limits. Normal speech. Laboratory Laboratory Tests Test 12/03/16 12/03/16 21:10 22:58 White Blood Count 10.9 Red Blood Count 4.66 Hemoglobin 15.8 Hematocrit 44.1 Mean Corpuscular Volume 94.6 Mean Corpuscular Hemoglobin 34.0 Mean Corpuscular Hemoglobin 35.9 Concent Red Cell Distribution Width 13.0 Platelet Count 268 Mean Platelet Volume 9.1 Neutrophils (%) (Auto) 70.1 Lymphocytes (%) (Auto) 24.4 Monocytes (%) (Auto) 4.3 Eosinophils (%) (Auto) 0.9 Basophils (%) (Auto) 0.3 Neutrophils # (Auto) 7.6 Lymphocytes # (Auto) 2.7 Monocytes # (Auto) 0.5 Eosinophils # (Auto) 0.1 Basophils # (Auto) 0.0 CBC Comment DIFF FINAL Differential Comment Sodium Level 139 Potassium Level 3.6 Chloride Level 101 Carbon Dioxide Level 26.6 Anion Gap 11 Blood Urea Nitrogen 12 Creatinine 0.90 Estimat Glomerular Filtration 75 Rate Random Glucose 91 Calcium Level 9.3 Total Bilirubin 0.3 Aspartate Amino Transf 22 (AST/SGOT) Alanine Aminotransferase 26 (ALT/SGPT) Alkaline Phosphatase 59 Total Protein 8.9 Albumin 4.9 Urine Color LIGHT-YELLOW Urine Turbidity HAZY Urine pH 6.5 Urine Specific [place] 1.013 Urine Protein NEG Urine Glucose (UA) NEG Urine Ketones 10 Urine Occult Blood NEG Urine Nitrite NEG Urine Bilirubin NEG Urine Urobilinogen LESS THAN 2.0 Urine Leukocyte Esterase LARGE Urine RBC 4 Urine WBC 12 Urine Squamous Epithelial 36 Cells Urine Bacteria FEW Urine Mucus FEW Urine Yeast (Budding) RARE Microscopic Urinalysis Comment CULTURE INDICATED Date/Time Procedure Status Source Growth 12/03/16 22:58 Urine Culture Received Urine Clean Catch Pending Result Diagram: 12/03/16210912/03/162109 Imaging Last 48 hours Impressions Pelvis Ultrasound 12/04/16 0000 Signed Impressions: Service Date/Time: November 00:14 - CONCLUSION: Normal examination. Angel Landon MD Abdomen/Pelvis CT 12/04/16 0000 Signed Impressions: Service Date/Time: November 05:54 - CONCLUSION: 1. Tiny left renal cyst otherwise unremarkable. 2. Normal appendix. Angel Landon MD Renal Ultrasound 12/03/16 0000 Signed Impressions: Service Date/Time: November 00:07 - CONCLUSION: Normal examination. Angel Landon MD Assessment and Plan Problem List: (1) UTI (urinary tract infection) ICD Code: N39.0 Status: Acute (2) Pyelonephritis ICD Code: N12 Status: Acute Assessment and Plan Impression: Intractable abdominal painetiology unclear. Suspects malingering behavior. However patient does have quite significant pain as well. UTI Plan: Patient had CT abdomen done on November 30, 2016. At that time, appendix was not visualized. Since patient is having quite severe pain with right upper quadrant abdomen is the reason, I would still obtain CT abdomen to rule out appendicitis. Previous sensitivity culturesreviewed. For now, will continue patient with Cipro Follow clinically. DVT prophylaxiswith Lovenox. GI prophylaxis on pantoprazole. Discussed Condition With patient, ER Physician Certification 2 Midnight Certification Type: Admission for Inpatient Services Order for Inpatient Services The services are ordered in accordance with Medicare regulations or non- Medicare payer requirements, as applicable. In the case of services not specified as inpatient-only, they are appropriately provided as inpatient services in accordance with the 2-midnight benchmark. Estimated LOS (days): 2 days is the estimated time the patient will need to remain in the hospital, assuming treatment plan goals are met and no additional complications. Post-Hospital Plan: Home Haile Anderson MD Dec 04, 2016 02:56
[2016-12-04] MEDS ORDERED: DIATRIZOATE MEGLUM/DIATRIZOATE SOD 9 ML CUP PO ONE (03:08)
[2016-12-04] MEDS ORDERED: DIATRIZOATE MEGLUM/DIATRIZOATE SOD 9 ML CUP ONE (03:10)
[2016-12-04] MEDS: MORPHINE SULFATE 4 MG/ML INJ IV PUSH PRN ×6 (03:19→23:19)
[2016-12-04] MEDS: SODIUM CHLOR 0.9% 1000 ML INJ 1,000 ML IV SCH ×3 (03:20→21:23)
[2016-12-04] MEDS ORDERED: IOHEXOL 350 MG/ML 10 ML VIAL (for RAD DIAG) IV ONE (06:07)
--- NOTE | 2016-12-04 06:39 | RADRPT ---
EXAM DATE/TIME: 12/04/2016 05:54 [facility] COMPARISON: CT ABDOMEN & PELVIS W CONTRAST, November 30, 2016, 20:43. INDICATIONS : Right flank and lower quadrant pain. Possible appendicitis. IV CONTRAST: 90 cc Omnipaque 350 (iohexol) IV ORAL CONTRAST: Prescribed oral contrast ingested. RADIATION DOSE: 6.13 CTDIvol (mGy) MEDICAL HISTORY : None SURGICAL HISTORY : None. ENCOUNTER: Subsequent ACUITY: 4 - 6 days PAIN SCALE: 4/10 LOCATION: Right flank lower quadrant TECHNIQUE: Volumetric scanning of the abdomen and pelvis was performed. Using automated exposure control and ad justment of the mA and/or kV according to patient size, radiation dose was kept as low as reasonably achievable to obtain optimal diagnostic quality images. FINDINGS: Urinary bladder uterus and adnexa are unremarkable. No evidence of bowel obstruction. Spleen, liver, gallbladder, pancreas, stomach, adrenal glands and right kidney are unremarkable. 5 mm cyst left midp ole kidney. The appendix is normal. No free fluid or free air. No inflammatory changes are seen. Lung bases are clear. Osseous structures are intact. CONCLUSION: 1. Tiny left renal cyst otherwise unremarkable. 2. Normal appendix. Angel Landon MD on December 04, 2016 at 6:36 Board Certified Radiologist. This report was verified electronically.
[2016-12-04] MEDS ORDERED: MORPHINE SULFATE 4 MG/ML INJ IV PUSH PRN (08:00)
[2016-12-04] MEDS: SODIUM CHLORIDE 0.9% FLUSH 10 ML FLUSH IV FLUSH SCH ×2 (08:36→20:19)
[2016-12-04] MEDS ORDERED: ENOXAPARIN SODIUM 40 MG/0.4 ML SYRINGE SQ SCH (09:00)
[2016-12-04 13:10] LABS: BLOOD, URINE NEG (NEG); COMMENT (UR) CATH-CULT NOT IND; CULTURE IF INDICATED CATH CULTURE NOT IND; GLUCOSE,URINE NEG (NEG); KETONE, URINE NEG (NEG); MUCUS URINE FEW /lpf (OCC); NITRITE,URINE NEG (NEG); PH, URINE 6.5 (5.0-8.5); SQUAMOUS EPITHELIAL CELL URINE 6 /hpf (0-5); URINE COLOR YELLOW (YELLW/STRAW)
== END 2016-12-05 01:51 | disposition home or self-care (01) ==
LOC: NEPA 18:30 → INTOOBSV 12-04 01:19 → OBSVTOIN 12-04 01:19 → NEDA 12-04 01:19 → NEDH 12-04 05:19 → H6EA 12-04 10:41
PROVIDERS: ADMIT Internal Medicine; ATTEND Internal Medicine
DX: N10 Acute pyelonephritis (principal); F41.9 Anxiety disorder, unspecified; J45.909 Unspecified asthma, uncomplicated; F17.200 Nicotine dependence, unspecified, uncomplicated; Z88.1 Allergy status to other antibiotic agents; Z88.5 Allergy status to narcotic agent; Z88.8 Allergy status to other drugs, medicaments and biological substances
CPT/HCPCS: 74177; 76775; 76856; 80053; 81001; 84703; 85025; 85652; 87086; 93975; 96361; 96374; 96375; 96376; G0378; J0295; J0744; J1650; J1885; J2270; J7030; Q9963; Q9967

== ENCOUNTER 2017-11-03 12:54 | Emergency (ER) | payer MEDICAID ==
[~2017-11-03] VITALS: Ht 160 cm; Wt 45.5 kg
[2017-11-03 12:54] VITALS: BP 127/69; PULSE 94; RESP 20; TEMP 98.5; O2SAT 98
[~2017-11-03 12:54] MED LIST changes: +ADVI200C5 PO; -MACR100C2 PO; -MOTR200T4 PO
[2017-11-03] MEDS ORDERED: ONDANSETRON HCL 4 MG/2 ML VIAL IM ONE (13:15)
--- NOTE | 2017-11-03 18:56 | PD ---
Physical Exam Date Seen by Provider: Nov 03, 2017 Time Seen by Provider: 14:09 Narrative 27 year old female presents to the emergency department for evaluation of vomiting for the past 48 hours. She denies any fevers. She reports lower abdominal pain, flank pain. She has hx of "kidney infections". Current pain is 3/10. Data Data Last Documented VS Vital Signs Date Time Temp Pulse Resp B/P (MAP) Pulse Ox O2 Delivery O2 Flow Rate FiO2 11/03/17 14:09 11/03/17 12:54 98.5 94 20 98 Room Air Orders Orders Complete Blood Count With Diff (11/03/17 13:03) Comprehensive Metabolic Panel (11/03/17 13:03) Lipase (11/03/17 13:03) Urinalysis - C+S If Indicated (11/03/17 13:03) Ed Urine Pregnancytest Poc (11/03/17 13:03) Ondansetron Inj (Zofran Inj) (11/03/17 13:15) MDM Supervised Visit with PAT: No Narrative Course 27 year old female presents to the emergency department for evaluation of vomiting. Patient is initially seen in triage and workup is initiated. Patient left AMA before she could be moved to a medical bed. Diagnosis Primary Impression: Left against medical advice Disposition: 07 AGAINST MEDICAL ADVICE Bell Albert Nov 03, 2017 18:56
== END 2017-11-03 14:09 | disposition left against medical advice (07) ==
LOC: NED 12:54
DX: R11.10 Vomiting, unspecified (principal)
CPT/HCPCS: 99281